=== PATIENT | male | born 1990 | race Caucasian/White ===

== ENCOUNTER → 2018-11-02 20:27 | Outpatient (CLI) | payer BC, SELFPAY | PROVIDERS: PCP Family Medicine; Visit Provider Nurse Practitioner Family | DX: R40.0 Somnolence (principal); R06.83 Snoring; E66.9 Obesity, unspecified; G47.33 Obstructive sleep apnea (adult) (pediatric) | CPT/HCPCS: G0399 ==

== ENCOUNTER → 2019-02-20 10:02 | Outpatient (POV) | payer BC, SELFPAY | PROVIDERS: Visit Provider Dermatology | DX: Z00.00 Encounter for general adult medical examination without abnormal findings (principal) ==

== ENCOUNTER → 2019-08-23 15:24 | Outpatient (CLI) | payer BC, SELFPAY ==
[2019-08-23 15:33] LABS: Microscopic, Urine URINE MICROSCOPIC (MICROSCOPIC)
[2019-08-23 15:44] LABS: Basophils % 0.5 % (0.1-2.0); Eosinophils # 0.1 K/mm3 (0.0-0.4); Eosinophils % 1.2 % (0.1-12.0); Hematocrit 45.5 % (42.0-52.0); Hemoglobin 16.2 g/dL (14.1-18.0); Lymphocytes # 2.1 K/mm3 (0.7-4.5); Lymphocytes % 36.9 % (10-50); Mean Corpuscular HGB Conc 35.5 g/dL (31.8-35.4); Mean Corpuscular Hemoglobin 31.3 pg (27.0-31.2); Mean Platelet Volume 8.3 fl (7.4-10.4); Monocytes # 0.5 K/mm3 (0.1-1.0); Monocytes % 9.3 % (1.7-9.3); Platelet Count 167 K/mm3 (142-424); Red Blood Count 5.17 M/mm3 (4.60-6.20); Red Cell Distribution Width 13.1 % (11.5-17.5); White Blood Count 5.7 K/mm3 (4.8-10.8)
[2019-08-23 16:09] LABS: Albumin Level 3.9 gm/dL (3.4-5.0); Albumin/Globulin Ratio 1.2 (1.1-1.8); Alkaline Phosphatase 136 U/L (46-116); Amylase 29 U/L (25-115); Anion Gap 14.8 mEq/L (5-15); Bilirubin,Total 0.6 mg/dL (0.2-1.0); Blood Urea Nitrogen 13 mg/dL (7-18); Carbon Dioxide 25 mmol/L (21.0-32.0); Chloride 102 mmol/L (98-107); Creatinine,Serum 0.93 mg/dL (0.70-1.30); Estimated Glomerular Filt Rate 95 ml/min (>60); GFR (African American) 115 ML/MIN (>60); Globulin 3.2 gm/dl (1.3-3.2); Lipase 141 u/L (73-393); Potassium 3.8 mmoL/L (3.5-5.1); Sodium 138 mmol/L (136-145); Total Protein,Serum 7.1 gm/dL (6.4-8.2)
[2019-08-23 16:32] LABS: Appearance,Urine CLEAR (Clear); Bilirubin,Urine Negative (Negative); Blood, Urine Negative (Negative); Color,Urine YELLOW (Yellow); Glucose,Urine (UA) Negative (Negative); Ketones,Urine Negative (Negative); Leukocyte Esterase,Urine Negative (Negative); Nitrate,Urine Negative (Negative); PH,Urine 5.5 (5.0-8.5); Protein,Urine Negative (Negative); Specific Gravity, Urine >= 1.030 (1.005-1.030); Urobilinogen,Urine 0.2 EU/dl (0.2)
[2019-08-23 16:36] LABS: Glucose 185 mg/dL (74-106)
[2019-08-23 16:37] LABS: Alanine Aminotransferase 246 U/L (12-78)
[2019-08-23 16:38] LABS: Aspartate Amino Transferase 86 U/L (15-37)
[2019-08-23 16:43] LABS: Bacteria,Urine 1+ /lpf; Calcium Oxalate Crystals,Urine 1+ /lpf; Mucus,Urine 3+ /lpf; RBC,Urine Occasional #/hpf (0-3)
== END ==
PROVIDERS: Visit Provider Nurse Practitioner Family
DX: R10.9 Unspecified abdominal pain (principal)
CPT/HCPCS: 36415; 80053; 81001; 82150; 83690; 85025

== ENCOUNTER → 2019-08-24 11:04 | Outpatient (CLI) | payer BC, SELFPAY ==
--- NOTE | 2019-08-24 11:14 | CT_ITS ---
PROCEDURE: CT ABDOMEN PELVIS W CON CLINICAL INDICATION: RT ABD PAIN Right-sided abdominal pain COMPARISON: No exams were available for comparison TECHNIQUE: IV Contrast: 75ML OPTIRAY 350 Oral Contrast none Axial images obtained with sagittal and coronal reformats. All CT scans at the facility use one or more dose reduction, viz: automated exposure control, ma/kV adjustment per patient size (including targeted exams where dose is matched to indication, i.e. head), or iterative reconstruction technique. FINDINGS: LOWER THORAX: There is a 6 mm noncalcified nodule in the right lower lobe. ABDOMEN & PELVIS: The liver has an unremarkable appearance. A small hyperdensity is noted in the region of the neck of the gallbladder and could be due to small stone or an area of vascular enhancement. The spleen is enlarged at 16 cm. Unremarkable appearing adrenal glands and pancreas. Scattered small nodes are present in the celiac region and portal area. These are nonspecific. No renal or ureteral calculi. The appendix is not clearly delineated. No evidence of appendicitis. No intestinal obstruction or free air. No evidence of diverticulitis. No pelvic mass abnormal fluid collection or focal inflammatory change. There is some minimal thickening of the urinary bladder wall nonspecific. No acute bony findings. IMPRESSION: 1. 6 mm noncalcified nodule right lower lobe. Six-month CT follow-up suggested. 2. Splenomegaly. 3. Possible cholelithiasis. Ultrasound may be of further value. 4. Other nonacute findings as described above. Dictated by: Harpreet Jade MD 08/24/2019 16:30 Electronically signed by Harpreet Jade MD in [place] 08/24/2019 16:30
== END ==
PROVIDERS: PCP Nurse Practitioner Family; Visit Provider Nurse Practitioner Family
DX: R10.9 Unspecified abdominal pain (principal)
CPT/HCPCS: 74177; Q9967

== ENCOUNTER → 2019-08-29 08:01 | Outpatient (CLI) | payer BC, SELFPAY ==
--- NOTE | 2019-08-29 08:04 | US_ITS ---
PROCEDURE: US ABDOMEN LIMITED CLINICAL INDICATION: CALCULUS OF GB Right upper quadrant pain, possible cholelithiasis COMPARISON: CT ABDOMEN PELVIS W CON from 08/24/2019 FINDINGS: PANCREAS: Pancreatic tail is somewhat obscured due to overlying bowel gas. LIVER: No focal liver lesions demonstrated. Homogeneous echogenicity. No intrahepatic biliary ductal dilatation evident. There is appropriate direction of blood flow within a non dilated portal vein. Mild fatty liver RIGHT KIDNEY: Unremarkable. Normal size and echogenicity. No hydronephrosis GALLBLADDER: No gallstones, gallbladder wall thickening, pericholecystic fluid, or biliary dilatation. IMPRESSION: Unremarkable limited abdominal ultrasound as detailed above disc Dictated by: Harpreet Jade MD 08/29/2019 15:07 Electronically signed by Harpreet Jade MD in [facility] 08/29/2019 15:07
== END ==
PROVIDERS: PCP Nurse Practitioner Family; Visit Provider Nurse Practitioner Family
DX: K80.20 Calculus of gallbladder without cholecystitis without obstruction (principal)
CPT/HCPCS: 76705

== ENCOUNTER → 2020-04-11 12:02 | Outpatient (CLI) | payer OTHER, SELFPAY ==
[2020-04-12 16:02] LABS: Covid-19 Nasal PCR Sendout Lex Not Detected
== END ==
PROVIDERS: PCP Nurse Practitioner Family; Visit Provider Nurse Practitioner Family
DX: Z03.818 Encounter for observation for suspected exposure to other biological agents ruled out (principal)
CPT/HCPCS: U0004

== ENCOUNTER 2020-09-02 20:46 | Emergency (ER) | payer OTHER, SELFPAY ==
[2020-09-02 20:56] VITALS: BP 151/82; PULSE 78; RESP 16; TEMP 36.8; O2SAT 98; BMI 38.0
--- NOTE | 2020-09-02 21:18 | [facility].EDSKAF ---
ED Disposition Clinical Impression: Lower limb anomaly, Elevated d-dimer, Obesity (BMI 30-39.9) Diabetes mellitus Qualifiers: Diabetes mellitus type: type 2 Diabetes mellitus halfway insulin use: without halfway use Diabetes mellitus complication status: with other specified complication Qualified Code(s): E11.69 - Type 2 diabetes mellitus with other specified complication Disposition: Home, Self-Care Condition on Discharge: Good Instructions: DI for Deep Vein Thrombosis Additional Instructions: call pcp in am for follo wup and consider venous doppler Referrals: Mandy Rutherford APRN [Primary Care Provider] - - Critical Care Critical Care Time: No Attestation: On 09/02/20, the high probability of a clinically significant, sudden or life threatening deterioration of the following system(s) required my full and direct attention, intervention and personal management. The time I documented below is in addition to time spent performing reported procedures but includes the following listed in this critical care notation. Medical Decision Making - Medical Records Medical records reviewed: Yes: I reviewed the patient's medical records. - Carlos Inquiry Pt receiving controlled substance: No Vital Signs: 09/02/20 20:56 09/02/20 21:30 09/02/20 22:00 Temperature 98.2 F Temperature Source Oral Pulse Rate [Right Brachial] 78 88 81 Respiratory Rate 16 Blood Pressure [Right Arm] 151/82 H 154/82 H 144/74 H Blood Pressure Mean [Right Arm] 105 106 97 Blood Pressure Source [Right Arm] Automatic Cuff Automatic Cuff Automatic Cuff Blood Pressure Position [Right Arm] Sitting Supine Supine 02 Sat by Pulse Oximetry 98 96 95 Oxygen Delivery Method Room Air Room Air Room Air 09/02/20 22:30 09/02/20 23:30 Temperature Temperature Source Pulse Rate [Right Brachial] 81 81 Respiratory Rate Blood Pressure [Right Arm] 144/79 H 130/85 Blood Pressure Mean [Right Arm] 100 100 Blood Pressure Source [Right Arm] Automatic Cuff Blood Pressure Position [Right Arm] Supine 02 Sat by Pulse Oximetry 95 95 Oxygen Delivery Method Room Air Room Air - Lab Data Lab results reviewed: Yes: I reviewed the patient's lab results. Lab Results 09/02/20 21:35: WBC 8.1, RBC 5.06, Hgb 17.0, Hct 46.7, MCV 92.2, MCH 33.6 H, MCHC 36.5 H, RDW 13.4, Plt Count 253, MPV 7.8, Neut % (Auto) 40.6, Lymph % (Auto) 50.8 H, [place] % (Auto) 6.2, Eos % (Auto) 1.3, Baso % (Auto) 1.1, Neut # (Auto) 3.3, Lymph # (Auto) 4.1, [place] # (Auto) 0.5, Eos # (Auto) 0.1, Baso # (Auto) 0.1, Total Counted 100, Neutrophils % (Manual) 44, Lymphocytes % (Manual) 50, Monocytes % (Manual) 4, Eosinophils % (Manual) 2, Platelet Estimate Normal, RBC Morphology Normal, ESR 3 09/02/20 21:35: Sodium 135 L, Potassium 4.5, Chloride 101, Carbon Dioxide 24, Anion Gap 14.5, BUN 16, Creatinine 0.90, Estimated Creat Clear 214, Estimated GFR 98, Est GFR ( Amer) 119, Glucose 260 H, Calcium 9.4, Total Bilirubin 1.1, AST 91 H, ALT 171 H, Alkaline Phosphatase 126, Total Creatine Kinase 282 H, C-Reactive Protein 1.6, Total Protein 8.2, Albumin 4.8, Globulin 3.4 H, Albumin/Globulin Ratio 1.4, TSH 2.29, Thyroxine (T4) 10.1 09/02/20 21:35: D-Dimer 0.97 H 09/02/20 21:35: Hemoglobin A1c 7.7 H Result diagrams: 09/02/20 21:35 09/02/20 21:35 Orders (Tests/Meds): ED MEDICATIONS Generic Name Dose Route Start Last Admin Trade Name Freq PRN Reason Stop Dose Admin Sodium Chloride 1,000 mls @ 999 mls/hr 09/02/20 23:15 09/02/20 23:47 Sod Chlor 0.9% 1000ml Bag IV 09/03/20 00:15 999 mls/hr .Q1H1M BEBA Administration Discontinued Medications Generic Name Dose Route Start Last Admin Trade Name Freq PRN Reason Stop Dose Admin Iopamidol 70 ml 09/02/20 23:53 09/02/20 23:54 Iopamidol-370 (76%);100ml Bottle IV 09/02/20 23:54 70 ml ONCE ONE Administration Morphine Sulfate 4 mg 09/03/20 00:00 09/03/20 00:07 Morphine 4mg/Ml Syringe IV 09/03/20 00:01 Not Given ONCE
[2020-09-02 21:30] VITALS: BP 154/82; PULSE 88; O2SAT 96
[2020-09-02 21:44] LABS: Basophils # 0.1 K/mm3 (0-0.2); Basophils % 1.1 % (0.1-2.0); Eosinophils # 0.1 K/mm3 (0.0-0.4); Eosinophils % 1.3 % (0.1-12.0); Hematocrit 46.7 % (42.0-52.0); Lymphocytes # 4.1 K/mm3 (0.7-4.5); Lymphocytes % 50.8 % (10-50); Mean Corpuscular HGB Conc 36.5 g/dL (31.8-35.4); Mean Corpuscular Hemoglobin 33.6 pg (27.0-31.2); Mean Corpuscular Volume 92.2 fl (80-94); Mean Platelet Volume 7.8 fl (7.4-10.4); Monocytes # 0.5 K/mm3 (0.1-1.0); Monocytes % 6.2 % (1.7-9.3); Neutrophils # 3.3 K/mm3 (1.8-7.8); Neutrophils % 40.6 % (37.0-80.0); Platelet Count 253 K/mm3 (142-424); Red Blood Count 5.06 M/mm3 (4.60-6.20); Red Cell Distribution Width 13.4 % (11.5-17.5); White Blood Count 8.1 K/mm3 (4.8-10.8)
[2020-09-02 21:48] LABS: Chloride 101 mmol/L (98-107); Potassium 4.5 mmoL/L (3.5-5.1); Sodium 135 mmol/L (136-145)
[2020-09-02 21:50] LABS: Alanine Aminotransferase 171 U/L (12-78); Alkaline Phosphatase 126 U/L (38-126); Aspartate Amino Transferase 91 U/L (17-59); Bilirubin,Total 1.1 mg/dl (0.2-1.3); Blood Urea Nitrogen 16 mg/dl (9-20); Creatine Kinase 282 U/L (55-170); Creatinine Clearance Estimated 214 mL/min (50-200); Estimated Glomerular Filt Rate 98 ml/min (>60); GFR (African American) 119 ML/MIN (>60)
[2020-09-02 21:51] LABS: Albumin Level 4.8 g/dl (3.5-5.0); Albumin/Globulin Ratio 1.4 (1.1-1.8); Anion Gap 14.5 mEq/L (5-15); Calcium 9.4 mg/dl (8.4-10.2); Carbon Dioxide 24 mmol/L (22.0-30.0); Globulin 3.4 g/dL (1.3-3.2); Glucose 260 mg/dl (74-100); Total Protein,Serum 8.2 g/dl (6.3-8.2)
[2020-09-02 21:52] LABS: MANUAL DIFFERENTIAL MANUAL DIFFERENTIAL (MANUAL DIFF)
[2020-09-02 21:56] LABS: C-Reactive Protein 1.6 mg/L (0-4)
[2020-09-02 22:00] VITALS: BP 144/74; PULSE 81; O2SAT 95
[2020-09-02 22:09] LABS: Erythrocyte Sedimentation Rate 3 mm/hr (0-15)
[2020-09-02 22:10] LABS: T4 (Thyroxine) 10.1 ug/dl (5.53-11.0)
[2020-09-02 22:24] LABS: Thyroid Stimulating Hormone 2.29 uIU/mL (0.465-4.68)
[2020-09-02 22:30] VITALS: BP 144/79; PULSE 81; O2SAT 95
[2020-09-02 22:35] LABS: Eosinophils % 2 % (0-3); Lymphocytes % 50 % (10-50); Monocytes % 4 % (2-9); Neutrophils % 44 % (42-76); Platelet Estimate Normal; RBC Morphology Normal; Total Cells Counted 100
[2020-09-02 22:57] LABS: D-Dimer 0.97 ug/mL (0.0-0.5)
--- NOTE | 2020-09-02 23:02 | CT_ITS ---
PROCEDURE: CT ANGIO CHEST CLINCIAL INDICATION: elevated d dimer Elevated D-dimer, shortness pain and swelling and redness in the legs COMPARISON: No exams were available for comparison TECHNIQUE: IV Contrast: 70ML Isovue 370 Axial images obtained with sagittal and coronal reformats. All CT scans at the facility use one or more dose reduction, viz: automated exposure control, ma/kV adjustment per patient size (including targeted exams where dose is matched to indication, i.e. head), or iterative reconstruction technique. FINDINGS: HEART AND MEDIASTINAL STRUCTURES: No evidence of pulmonary embolus, aortic aneurysm, or aortic dissection. There are some mildly prominent right hilar lymph nodes LUNGS AND PLEURAL SPACES: 8 mm noncalcified nodule right lower lobe posteriorly. 2 mm nodule left upper lobe laterally which may be due to granuloma. BONY STRUCTURES: No acute bony abnormalities apparent. UPPER ABDOMEN: Hepatomegaly. The liver is enlarged and incompletely imaged. The spleen is enlarged at 16 cm. ADDITIONAL FINDINGS: Gynecomastia noted IMPRESSION: 1. No evidence of pulmonary embolus. 2. Indeterminate right lower lobe nodule at 8 mm with mildly prominent right hilar lymph nodes. Consider 3 month follow-up. 3. Hepatosplenomegaly Dictated by: Harpreet Jade MD 09/03/2020 05:53 Harpreet Jade MD in [place] 09/03/2020 05:53
[2020-09-02 23:23] LABS: Hemoglobin A1C 7.7 % (4.0-6.0)
[2020-09-02 23:30] VITALS: BP 130/85; PULSE 81; O2SAT 95
[2020-09-03 00:52] VITALS: BP 136/88; PULSE 80; RESP 16; TEMP 36.7; O2SAT 98
== END 2020-09-03 00:56 | disposition home or self-care (01) ==
PROVIDERS: Emergency Provider Emergency Medicine; PCP Nurse Practitioner Family
DX: L03.116 Cellulitis of left lower limb (principal); E11.65 Type 2 diabetes mellitus with hyperglycemia; R79.89 Other specified abnormal findings of blood chemistry; Z79.899 Other long term (current) drug therapy
CPT/HCPCS: 71275; 80053; 82550; 83036; 84436; 84443; 85007; 85025; 85378; 85651; 86140; 96365; 96372; 96375; 99284; Q9967

== ENCOUNTER → 2020-09-03 15:57 | Outpatient (CLI) | payer OTHER, SELFPAY ==
--- NOTE | 2020-09-03 16:00 | CA_ITS ---
APPROVED REPORT Left Lower Extremity Venous Study for DVT. 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 Vein Imaging CFV (L): compressive, spontaneous, phasic, augmentation FEM (L): compressive, spontaneous, phasic, augmentation POP (L): compressive, spontaneous, phasic, augmentation PTV (L): Compressible GSV (L): compressive, spontaneous, phasic, augmentation SSV (L): Compressible Peroneals (L):Compressible GAS (L): Compressible Findings No evidence of DVT or superficial thrombophlebitis in the veins scanned of the left lower extremity. Conclusion No evidence of DVT or superficial thrombophlebitis in the veins scanned of the left lower extremity. Electronically signed by : Harpreet Jade MD 09/03/2020 17:36:45
== END ==
PROVIDERS: PCP Nurse Practitioner Family; Visit Provider Family Medicine
DX: M79.605 Pain in left leg (principal)
CPT/HCPCS: 93971

== ENCOUNTER → 2020-12-10 14:36 | Outpatient (CLI) | payer OTHER, SELFPAY | PROVIDERS: PCP Nurse Practitioner Family; Visit Provider Internal Medicine Pulmonary Disease | DX: R06.00 Dyspnea, unspecified (principal) | CPT/HCPCS: 94060; 94618; 94726; 94729 ==

== ENCOUNTER → 2021-03-18 14:15 | Outpatient (CLI) | payer OTHER, SELFPAY ==
--- NOTE | 2021-03-18 14:15 | CT_ITS ---
PROCEDURE: CT CHEST WO CON CLINICAL INDICATION: 6-month follow-up Lung nodule COMPARISON: CT CT ANGIO CHEST from 09/02/2020 TECHNIQUE: Axial images obtained with sagittal and coronal reformats. All CT scans at the facility use one or more dose reduction, viz: automated exposure control, ma/kV adjustment per patient size (including targeted exams where dose is matched to indication, i.e. head), or iterative reconstruction technique. FINDINGS: HEART AND MEDIASTINAL STRUCTURES: There are few small mediastinal lymph nodes which are stable with some mild stranding of the anterior mediastinal fat unchanged. Small right hilar nodes which are unchanged. LUNGS AND PLEURAL SPACES: A persistent noncalcified nodules present in the right lower lobe posteriorly measuring approximately 8 x 8 mm. This does not appear significantly changed. No new nodules are evident. No effusions or infiltrates. BONY STRUCTURES: No acute bony abnormalities apparent. UPPER ABDOMEN: Unremarkable. ADDITIONAL FINDINGS: No other significant abnormalities. IMPRESSION: Stable appearance of the chest. No change in the 8 mm right lower lobe pulmonary nodule. Suggest 12 month follow-up to confirm stability. Dictated by: Harpreet Jade MD 03/19/2021 10:31 Harpreet Jade MD in [facility] 03/19/2021 10:31
== END ==
PROVIDERS: PCP Nurse Practitioner Family; Visit Provider Internal Medicine Pulmonary Disease
DX: R91.8 Other nonspecific abnormal finding of lung field (principal)
CPT/HCPCS: 71250

== ENCOUNTER → 2021-07-08 13:11 | Outpatient (CLI) | payer OTHER, SELFPAY ==
[2021-07-08 14:00] VITALS: PULSE 77; PULSE 80
== END ==
PROVIDERS: PCP Nurse Practitioner Family; Visit Provider Internal Medicine Pulmonary Disease
DX: R06.00 Dyspnea, unspecified (principal)
CPT/HCPCS: 94060; 94618; 94640; 94726; 94729